=== PATIENT | male | born 1995 ===

== ENCOUNTER 2025-01-15 16:08 | Emergency (ER) | payer OTHER, SELFPAY ==
[2025-01-15 16:15] VITALS: BP 122/74; PULSE 70; RESP 20; O2SAT 96; BMI 29.8
--- NOTE | 2025-01-15 16:22 | XR_ITS ---
Patient: LARISA AGUIRRE Facility:?[facility] Patient ID:?[id number] Site Patient ID:?[id number]. Site :?[id number] Study:?XRay-Extremity Right elbow 3v-01/15/2025 4:37:18 PM Ordering Physician:?PROVIDER TEMP Final Report: Indication: Injury and pain. Technique: Right elbow 3 views. Comparison: None. Findings: Bones: Alignment is normal. No fractures or bone lesions. Joint spaces: Unremarkable. No sign of joint effusion. Soft tissues: Small amount of mineralization adjacent to the lateral epicondyle. Impression: No acute osseous abnormality. Dictated by Adry Chaparro MD @ 01/15/2025 4:43:31 PM Signed by:?Adry Chaparro MD @01/15/2025 4:43:31 PM (Electronic Signature)
--- NOTE | 2025-01-15 17:07 | ED_ITS ---
HPI - General Adult General Chief complaint: Extremity Pain/Injury, Upper Stated complaint: Broken Right Arm Time Seen by Provider: 01/15/25 17:06 History of Present Illness HPI narrative: Patient was playing as goalie in game, fell with full weight unto his right arm. Feels pain in humeral head. Reports previous fracture in this arm about 15 year ago. Last PO was 12 today. 29-year-old man presenting to the emergency department with concern of injury to his right arm. He was playing [employer] and describes mechanism where his right arm was extended and there was some rotation as he fell with weight onto his right arm. He notes swelling about the elbow. No other injuries were sustained. Apparently had a fracture in this arm some years ago. Hurts a great deal with any flexion, movement about the elbow. No head neck or back pain. Not really with shoulder pain. No abdominal pain. Related Data Previous Rx's ?Medication ?Instructions ?Recorded hydrocodone 5 mg-acetaminophen 325 1 - 2 tab PO Q4-6H PRN pain #10 01/15/25 mg tablet tabs Allergies Allergy/AdvReac Type Severity Reaction Status Date / Time No Known Drug Allergies Allergy Verified 01/15/25 16:14 Review of Systems Status of ROS: Reports: 6 or more systems reviewed and unremarkable except as noted in History and below Exam Narrative: Exam Narrative: Pleasant. In soccer attire. Right arm is resting on him slightly bent at the elbow. Diffuse swelling about the elbow is appreciated. Rotation of the forearm is possible and somewhat painful. Extension and flexion of the elbow is quite painful. Pulses are good distally. Is able to open his hand and closes hand normally. There is no pain to palpation about the shoulder nor do I appreciate pain to palpation over the majority of the humerus until a get closer to the elbow nor is there discrete pain to palpation over the radius and forearm until contained in the swelling of the elbow. Breathing easily. Heart in regular rate. Abdomen is soft nontender. Const: Vital Signs, click to edit/add: Vital Signs - 24 hr 01/15/25 16:15 Pulse Rate [Pulse Oximeter] 70 Respiratory Rate 20 Blood Pressure [Ri ght Upper Arm] 122/74 Pulse Oximetry 96 Oxygen Delivery Me thod Room Air Documenting provider has reviewed patient's vital signs: yes Course Vital Signs Vital signs: Initial Vital Signs Pulse Rate 70 01/15/25 16:15 Respiratory Rate 20 01/15/25 16:15 Blood Pressure 122/74 01/15/25 16:15 Blood Pressure Mean 90 01/15/25 16:15 Pulse Oximetry 96 01/15/25 16:15 Oxygen Delivery Method Room Air 01/15/25 16:15 Vital Signs Pulse Rate 70 01/15/25 16:15 Respiratory Rate 20 01/15/25 16:15 Blood Pressure 122/74 01/15/25 16:15 Pulse Oximetry 96 01/15/25 16:15 Oxygen Delivery Method Room Air 01/15/25 16:15 Pulse Rate 70 01/15/25 16:15 Respiratory Rate 20 01/15/25 16:15 Blood Pressure 122/74 01/15/25 16:15 Pulse Oximetry 96 01/15/25 16:15 Oxygen Delivery Method Room Air 01/15/25 16:15 Medications Administered Medications: Discontinued Medications Generic Name Dose Route Start Last Admin Trade Name Freq PRN Reason Stop Dose Admin Ibuprofen 800 mg 01/15/25 17:23 01/15/25 17:30 Ibuprofen 400 Mg Tablet PO 01/15/25 17:24 800 mg ONCE ONE Administration Medical Decision Making MDM Narrative Medical decision making narrative: Might well have a fracture here. Less likely I think the radial head. The way he describes it though there may have been a partial dislocation/subluxation. At a minimum I would presume there is a sprain. Was given ibuprofen and ice pack in the emergency department. Three view x-ray of the right elbow which I see does include all areas of pain, I do not appreciate any effusion to suggest fracture. I do not see fracture. I do discuss further imaging of the humerus and forearm but Mr. Laughlin does feel that it is isolated to his elbow and I am inclined to agree. Given an arm sling. We discussed options for pain management. See patient discharge plan for further discussion I would ice your elbow 2-3 times daily over the next few days. I do have concerns that maybe you partially dislocated your elbow which would mean a more serious sprain like situation. At a minimum it is sprained. Fractures can still appear later. Wear the arm sling for comfort over this next week. Please follow-up in a week if not improved. You might call tomorrow for a possible appointment with your primary care provider, particularly if they do sports medicine. You might call to sports medicine or an orthopedic center. Can take up to 800 mg of ibuprofen or up to 1000 mg of acetaminophen per dose. I have also sent in [employer] ([employer]) to your pharmacy. Each tablet contains an opiate (5 mg of hydrocodone) and 325 mg of acetaminophen. Take this copy of a disc of images with you to follow-up. Discharge Plan Discharge Clinical Impression: Elbow sprain, Elbow pain Patient Disposition: Home w/ Parent or Adult Condition: Stable Additional Instructions: I would ice your elbow 2-3 times daily over the next few days. I do have concerns that maybe you partially dislocated your elbow which would mean a more serious sprain like situation. At a minimum it is sprained. Fractures can still appear later. Wear the arm sling for comfort over this next week. Please follow-up in a week if not improved. You might call tomorrow for a possible appointment with your primary care provider, particularly if they do sports medicine. You might call to sports medicine or an orthopedic center. Can take up to 800 mg of ibuprofen or up to 1000 mg of acetaminophen per dose. I have also sent in [employer] ([employer]) to your pharmacy. Each tablet contains an opiate (5 mg of hydrocodone) and 325 mg of acetaminophen. Take this copy of a disc of images with you to follow-up. Le aplicar?a hielo en el codo 2 o 3 veces al d?a ronda los pr?ximos d?as. Me preocupa que se haya dislocado parcialmente el codo, lo que podr?a provocar amos situaci?n similar a un esguince m?s grave. Thi m?carmenza, es un esguince. Las fracturas podr?an aparecer m?s adelante. Use el cabestrillo para mayor comodidad ronda la pr?xima semana. Por favor, consulte en amos semana si no mejora. Podr?a llamar ma?edgar para amos posible tara con crouch m?dico de cabecera, especialmente si se especializa en medicina deportiva. Podr?a llamar a un centro de medicina deportiva o a un centro ortop?dico. Puede nina hasta 800 mg de ibuprofeno o hasta 1000 mg de acetaminof?n por dosis. Tambi?n le he enviado [place] a crouch farmacia. Cada comprimido contiene un opi?education paraprofessional (5 mg de hidrocodona) y 325 mg de acetaminof?n. Lleve esta copia de un disco con im?genes para crouch seguimiento. Prescriptions: New hydrocodone-acetaminophen 5-325 mg tablet 1 - 2 tab PO Q4-6H PRN (Reason: pain) Qty: 10 0RF Follow Up/Referrals: Provider,Not a Local [Primary Care Provider, Family Practice] Stand Alone Forms: MyHealth Info Instructions
[2025-01-15] MEDS: IBUPROFEN 400 MG TABLET 800 MG PO (17:30)
== END 2025-01-15 18:13 | disposition home or self-care (01) ==
PROVIDERS: Emergency Provider Family Medicine
DX: S53.401A Unspecified sprain of right elbow, initial encounter (principal); W01.0XXA Fall on same level from slipping, tripping and stumbling without subsequent striking against object, initial encounter; Y93.66 Activity, soccer; Y92.322 Soccer field as the place of occurrence of the external cause
CPT/HCPCS: 73080; 99283; 99284; A9270